=== PATIENT | male | born 1980 | race Caucasian/White ===

== ENCOUNTER 2017-03-01 20:44 | Emergency (ER) | payer SELFPAY ==
[~2017-03-01] VITALS: Ht 182.9 cm; Wt 127.4 kg
[2017-03-01] MEDS ORDERED: PREDNISONE20 M1 PO (22:38)
[2017-03-01 22:51] VITALS: BP 132/88
== END 2017-03-01 22:45 | disposition home or self-care (01) ==
LOC: ED 20:44
DX: M25.541 Pain in joints of right hand (principal); M25.441 Effusion, right hand; R06.2 Wheezing; F17.210 Nicotine dependence, cigarettes, uncomplicated